=== PATIENT | male | born 1965 | race Hispanic/Latino ===

== ENCOUNTER 2024-03-02 08:19 | Emergency (ER) | payer SELFPAY ==
--- OUTSIDE RECORDS SUMMARY | 2024-03-02 08:22 | XMS REPORT | Continuity of Care Document ---
Author Name Unknown Address [address] [facility] [address] [place] [id number] [facility] thconnect Address [address] [facility] [address] [place] [address] Care Team Providers Care Caving Guide Name Role Phone DWIGHT TURNER Attending Clinician Unavailable DWIGHT TURNER Admitting Clinician Unavailable Payers Payer Name Policy Type Policy Number Effective Date Expirati on Date Source MEDICAID ALIEN PENDING PENDING 2019 00:00:00 2019 00:00:00 Allergies, Adverse Reactions, Alerts Allergy Name Allergy Type Status Severity Reaction(s) Onset Date Inactive Date Treating Clinician Comments Source NO KNOWN ALLERGIE S Drug Class Active [facility] Encounters Start Date/Time End Date/Time Encounter Type Admission Type Attending Clinicians Care Facility Care Department Encounter ID Source 2020-08-23 18:24:00 2020-08-23 18:24:00 Emergency X [facility] ERT [id number] [facility] 2019-11-08 23:25:24 2019-11-09 01:39:00 Emergency X DWIGHT TURNER [facility] ERT [id number] [facility] Results Test Description Test Time Test Comments Results Result Co mments Source COMPREHENSIVE METABOLIC [id number] 05:09:28* Test Item Value Reference Range Interpretation Comme nts GLUCOSE (test code = 2217) 102 MG/DL 70-99 H BUN (test code = 2208) 16 MG/DL 6-20 CREATININE (test code = 2214) 0.86 MG/DL 0.80-1.40 eGFR (2020 CKD-EPI) (test code = 43821) 101 ML/MIN/1.73 >60 CALC BUN/CREAT (test code = 2235) 19 RATIO 6-28 SODIUM (test code = 2231) 140 MEQ/L 133-146 POTASSIUM (test code = 2228) 4.4 MEQ/L 3.5-5.4 CHLORIDE (test code = 5) 102 MEQ/L 95-107 CARBON DIOXIDE (test code = 2205) 27 MEQ/L 19-31 CALCIUM (test code = 2208) 9.7 MG/DL 8.5-10.5 PROTEIN, TOTAL (test code = 2228) 8.1 G/DL 6.1-8.3 ALBUMIN (test code = 2200) 4.5 G/DL 3.5-5.2 CALC GLOBULIN (test code = 0) 3.6 G/DL 1.9-3.7 CALC A/G RATIO (test code = 223) 1.3 RATIO 1.0-2.6 BILIRUBIN, TOTAL (test code = 2206) 0.3 MG/DL See_Comment [Automated me ssage] The system which generated this result transmitted reference range: <=1.2. The reference range was not used to interpret this result as normal/abnormal. ALKALINE PHOSPHATASE (test code = 2203) 122 U/L 40-123 AST (test code = 2217) 29 U/L 9-50 ALT (test code = 221) 23 U/L 5-50 LIPID [id number] 05:09:28* Test Item Value Reference Range Interpretation Comme nts CHOLESTEROL (test code = 2210) 203 MG/DL <200 H TRIGLYCERIDES (test code = 2232) 211 MG/DL <150 H HDL CHOLESTEROL (test code = 0) 48 MG/DL >39 CALC LDL CHOL (test code = 2236) 122 MG/DL <100 H NOTE: CALCULATED LDL IS BASED ON COY-CRUZ METHOD WHICHINCLUDES ADJUSTABLE TRIGLYCERIDE:VLDL CHOLESTEROL RATIO.THIS FACTOR VARIES BY MEASURED TRIGLYCERIDE AND NON-HDLCHOLESTEROL CONCENTRATIONS WITH INCREASED CALCULATED LDL SEENIN HIGHER TRIGLYCERIDE OR LOWER NON-HDL SPECIMENS. FOR MOREINFORMATION, SEE CLIENT ANNOUNCEMENT AT [email or web address] Applications /CalcLDL-C RISK RATIO LDL/HDL (test code = 2238) 2.54 RATIO <3.55 CBC W/AUTO DIFF WITH [id number] 04:20:36* Test Item Value Reference Range Interpretation Comme nts WBC (test code = 1001) 5.9 K/UL 3.5-11.0 RBC (test code = 1002) 4.78 M/UL 4.50-6.10 HEMOGLOBIN (test code = 1003) 15.1 G/DL 13.5-17.0 HEMATOCRIT (test code = 1004) 43.7 % 40.0-51.0 MCV (test code = 1005) 91.4 fL 80.0-99.0 MCH (test code = 1006) 31.6 PG 25.0-33.0 MCHC (test code = 1007) 34.6 G/DL 31.0-36.0 RDW (test code = 1038) 13.4 % 11.5-15.0 NEUTROPHILS (test code = 1008) 46.8 % LYMPHOCYTES (test code = 1010) 39.2 % MONOCYTES (test code = 1011) 7.8 % EOSINOPHILS (test code = 1012) 5.1 % BASOPHILS (test code = 1013) 0.8 % IMMATURE GRANULOCYTES (test code = 1036) 0.3 % NUCLEATED RBCS (test code = 1065) 0.0 /100 WBC'S See_Comment [[employer]] The system which generated this result transmitted reference range: 0.0. The reference range was not used to interpret this result as normal/abnormal. PLATELET COUNT (test code = 1015) 275 K/UL 130-400 ABSOLUTE NEUTROPHILS (test code = 1066) 2.77 K/UL 1.50-7.50 ABSOLUTE LYMPHOCYTES (test code = 1067) 2.32 K/UL 1.00-4.00 ABSOLUTE MONOCYTES (test code = 1068) 0.46 K/UL 0.20-1.00 ABSOLUTE EOSINOPHILS (test code = 1040) 0.30 K/UL 0.00-0.50 ABSOLUTE BASOPHILS (test code = 1069) 0.05 K/UL 0.00-0.20 ABS IMMATURE GRANULOCYTES (test code = 1020) 0.02 K/UL 0.00-0.10 ABS NUCLEATED RBCS (test code = 31729) 0.00 K/UL 0.00-0.11 SARS-CoV-2 (COVID-19), RT-PCR/[id number] 11:23:26* Test Item Value Reference Range Interpretation Comments SARS-CoV-2 INTERPRETATION (test code = 52867) NEGATIVE SEE NOTE SARS-CoV-2 R NA NOT DETECTEDNegative results do not preclude SARS-CoV-2 infection and should notbe used as the sole basis for patient management decisions. Negativeresults must be combined with clinical observations, patient history,and epidemiological information. Optimum specimen types and timingfor peak viral levels during infections caused by SARS-CoV-2 have notbeen determined. Collection of multiple specimens or types ofspecimens may be necessary to detect virus. Improper specimencollection and handling, sequence variability under primers/probes,or organism present below the limit of detection may lead to falsenegative results. Positive and negative predictive values oftesting are highly dependent on prevalence. False negative testresults are more likely when prevalence is high. SOURCE (test code = 57472) NOT SPECIFIED Note: Methodolog y is Gerardo Ike Real-Time RT-PCR. The expected result or reference range is NEGATIVE (Not Detected). For more information regarding COVID-19 testing to include clinicalinformation, methodology detail, intended use, FDA authorization andrecommended fact sheets for patients or healthcare providers, see [employer] Announcement: SARS-CoV-2 (COVID-19) by NAAT at URL below (note,fact sheets are provided by method given in report:[email or web address] Alternatively, see downloadable PDF fact sheet at:[email or web address]-PCR UNLESS OTHERWISE INDICATED, ALL TESTING PERFORMED [facility] [address] [place] [address] [employer]TR[employer]ON[employer] HAND SOLDERER: LEWIS MENDIETA M.D. CLIA NUMBER [id number] [facility] [place] [place]. [id number]
[2024-03-02 08:57] LABS: Absolute Eosinophils 0.1 K/uL (0-0.5); Absolute Lymphocytes (CBC) 1.9 K/uL (0.7-4.9); Absolute Monocytes 0.6 K/uL (0.1-1.3); Basophils % 0.3 % (0-1.3); Eosinophils % 1.6 % (0-4.4); Hematocrit 45.5 % (39.6-49.0); Hemoglobin 15.3 g/dL (13.6-17.9); Lymphocytes % 22.4 % (15.3-44.8); MCH 31.7 pg (27.0-35.0); MCHC 33.6 g/dL (32.0-36.0); MCV 94.3 fL (80-100); MPV 7.7 fL (7.6-11.3); Monocytes % 6.6 % (3.3-12.3); Neutrophils % 69.1 % (41.7-73.7); Platelets 212 thou/uL (152-406); RBC Red Blood Cell Count 4.83 M/uL (4.33-5.43); Red Cell Distribution Width 14.5 % (12.1-15.2)
[2024-03-02 08:58] LABS: PT Prothrombin Time 12.5 SECONDS (9.5-12.5); Protime INR 1.14
[2024-03-02 09:11] LABS: Albumin 3.7 g/dL (3.4-5.0); Albumin/Globulin Ratio 0.9 (1.1-1.8); Anion Gap 6.6 mEq/L (5.0-15.0); Bilirubin Total 0.6 mg/dL (0.2-1.0); Globulin 4.3 g/dL (2.3-3.5); Potassium 3.6 mEq/L (3.5-5.1)
--- NOTE | 2024-03-02 10:01 | EDPHYS ---
Physician Documentation [facility] Name: Reece Martinez Age: 58 yrs Sex: Male : 1965 Arrival Date: 03/02/2024 Time: 08:19 Bed 20 Private MD: ED Physician Ciro Pearson HPI: 03/02 09:01 This 58 yrs old Male presents to ER via Ambulatory with complaints of Bloody ms3 Stools. 09:01 58-year-old male with no past medical history presents to the emergency department for ms3 bloody bowel movements. Patient states he was seen Tuesday in [place] for bloody bowel movement, stress and anxiety. Patient was given medication to help him sleep at that time. Patient states his symptoms have become worse and he is having 1 bloody bowel movement per day. Patient denies nausea, vomiting, diarrhea, abdominal pain, shortness of breath.. Historical: - Allergies: 08:36 No Known Allergies; kc6 - Home Meds: 08:36 trazodone 50 mg Oral tablet 1 tab every day at bedtime [Active]; kc6 - PMHx: 08:36 None; kc6 - PSHx: 08:36 None; kc6 - Immunization history:: Adult Immunizations up to date. - Infectious Disease History:: Denies. - Social history:: Smoking status: Patient denies any tobacco usage or history of. ROS: 09:01 Constitutional: Negative for fever, and chills. Neck: Negative for injury, pain, and ms3 swelling, Cardiovascular: Negative for chest pain, and palpitations. Respiratory: Negative for shortness of breath, cough, wheezing, and pleuritic chest pain, 09:01 Abdomen/GI: Positive for rectal bleeding, 09:01 All other systems are negative, Exam: 09:01 Constitutional: This is a well developed, well nourished patient who is awake, alert, ms3 and in no acute distress. Head/Face: Normocephalic, atraumatic. Chest/axilla: Normal chest wall appearance and motion. Nontender with no deformity. Cardiovascular: Regular rate and rhythm with a normal S1 and S2. No gallops, murmurs, or rubs. Normal PMI, no JVD. No pulse deficits. Respiratory: Lungs have equal breath sounds bilaterally, clear to auscultation and percussion. No rales, rhonchi or wheezes noted. No increased work of breathing, no retractions or nasal flaring. Abdomen/GI: Soft, non-tender, with normal bowel sounds. No distension or tympany. No guarding or rebound. No evidence of tenderness throughout. Skin: Warm, dry with normal turgor. Normal color with no rashes, no lesions, and no evidence of cellulitis. 09:01 : Rectal exam: Rectal tone: normal, Perineal sensation Normal Stool: brown, the nurse was present for the exam, Vital Signs: 08:36 BP 175 / 111; Pulse 91; Resp 18 S; Pulse Ox 100% on R/A; Weight 90.72 kg (R); Height 5 kc6 ft. 7 in. (R); Pain 0/10; 08:48 BP 175 / 103; kc6 09:06 BP 165 / 101; Pulse 79; Resp 18 S; Pulse Ox 96% on R/A; kc6 10:16 BP 158 / 89; Pulse 85; Resp 18 S; Pulse Ox 99% on R/A; kc6 08:36 Body Mass Index 31.32 (90.72 kg, 170.18 cm) kc6 08:36 Pain Scale: Adult kc6 MDM: 08:31 Patient medically screened. ms3 09:01 Differential diagnosis: Internal hemorrhoid versus anemia versus hypertension. ms3 14:47 Data reviewed: vital signs, nurses notes, lab test result(s), and as a result, I will ms3 discharge patient. Counseling: I had a detailed discussion with the patient and/or guardian regarding the historical points, exam findings, and any diagnostic results supporting the discharge/admit diagnosis, lab results, the need for outpatient follow up, to return to the emergency department if symptoms worsen or persist or if there are any questions or concerns that arise at home. Special discussion: I discussed with the patient/guardian in detail that at this point there is no indication for admission to the hospital. It is understood, however, that if the symptoms persist or worsen the patient needs to return immediately for re-evaluation. ED course: Discussed labs with patient. Patient to follow-up with primary care physician in 2 to 3 days. Patient understands and agrees with plan. All questions were answered. Return precautions discussed include worsening symptoms, or any other concerns. 05/31 08:33 Order name: CBC with Diff; Complete Time: 09:42 ms3 03/02 08:33 Order name: CMP; Complete Time: 09:42 ms3 03/02 08:33 Order name: PT-INR; Complete Time: 09:42 ms3 Administered Medications: No medications were administered Disposition Summary: 03/02/24 10:01 Discharge Ordered Notes: Location: Home ms3 Condition: Stable ms3 Diagnosis - Rectal bleeding ms3 Followup: ms3 - With: Elfego Muñoz MD - When: 2 - 3 days - Reason: Recheck today's complaints Discharge Instructions: - Discharge Summary Sheet ms3 - Rectal Bleeding, [id number] ms3 Forms: - Medication Reconciliation Form ms3 - Antibiotic Education ms3 - Prescription Opioid Use ms3 - Patient Portal Instructions ms3 - Leadership Thank You Letter ms3 Signatures: Dispatcher [employer] EDMS Ciro Pearson DO DO ms3 Celeste Richardson RN RN kc6 Corrections: (The following items were deleted from the chart) 08:33 08:33 CBC+H.LAB.BRZ ordered. EDMS EDMS 08:33 08:33 COMPREHENSIVE METABOLIC PANEL+C.LAB.BRZ ordered. EDMS EDMS 08:33 08:33 PROTIME (+INR)+COAG.LAB.BRZ ordered. EDMS EDMS
--- NOTE | 2024-03-02 10:01 | ER ---
Nurse's Notes [facility] Name: Reece Martinez Age: 58 yrs Sex: Male : 1965 Arrival Date: 03/02/2024 Time: 08:19 Bed 20 Private MD: Diagnosis: Rectal bleeding Presentation: 03/02 08:36 Chief complaint: Patient states: bloody stool since Tuesday. denies n/v/d or abd pain. [facility] Coronavirus screen: At this time, the client does not indicate any symptoms associated with coronavirus-19. Ebola Screen: No symptoms or risks identified at this time. Initial Sepsis Screen: Does the patient meet any 2 criteria? No. Patient's initial sepsis screen is negative. Does the patient have a suspected source of infection? No. Patient's initial sepsis screen is negative. Risk Assessment: Do you want to hurt yourself or someone else? Patient reports no desire to harm self or others. Onset of symptoms was March 02, 2024. 08:36 Method Of Arrival: Ambulatory [facility] 08:36 Acuity: ALVINO 3 [facility] Historical: - Allergies: 08:36 No Known Allergies; kc6 - Home Meds: 08:36 trazodone 50 mg Oral tablet 1 tab every day at bedtime [Active]; kc6 - PMHx: 08:36 None; kc6 - PSHx: 08:36 None; kc6 - Immunization history:: Adult Immunizations up to date. - Infectious Disease History:: Denies. - Social history:: Smoking status: Patient denies any tobacco usage or history of. Screenin:37 [facility] ED Fall Risk Assessment (Adult) History of falling in the last 3 months, kc6 including since admission No falls in past 3 months (0 pts) Confusion or Disorientation No (0 pts) Intoxicated or Sedated No (0 pts) Impaired Gait No (0 pts) Mobility Assist Device Used No (0 pt) Altered Elimination No (0 pt) Score/Fall Risk Level 0 - 2 = Low Risk. Abuse screen: Denies threats or abuse. Denies injuries from another. Nutritional screening: No deficits noted. Tuberculosis screening: No symptoms or risk factors identified. Assessment: 08:47 General: Appears in no apparent distress. comfortable, well groomed, well developed, [facility] Behavior is calm, cooperative, appropriate for age. Pain: Denies pain. Neuro: Level of Consciousness is awake, alert, obeys commands, Oriented to person, place, time, situation, Appropriate for age. Cardiovascular: Capillary refill < 3 seconds. Respiratory: Airway is patent Trachea midline Respiratory effort is even, unlabored, Respiratory pattern is regular, symmetrical. GI: Reports bloody stool, Patient currently denies abdominal pain, diarrhea, nausea, vomiting. : No signs and/or symptoms were reported regarding the genitourinary system. EENT: No signs and/or symptoms were reported regarding the EENT system. Derm: No signs and/or symptoms reported regarding the dermatologic system. Skin is intact, is healthy with good turgor, Skin is pink, warm \T\ dry. Musculoskeletal: No signs and/or symptoms reported regarding the musculoskeletal system. Circulation, motion, and sensation intact. Capillary refill < 3 seconds, Range of motion: intact in all extremities. 09:47 Reassessment: Patient appears in no apparent distress at this time. No changes from kc6 previously documented assessment. Patient and/or family updated on plan of care and expected duration. Pain level reassessed. Patient is alert, oriented x 3, equal unlabored respirations, skin warm/dry/pink. Vital Signs: 08:36 BP 175 / 111; Pulse 91; Resp 18 S; Pulse Ox 100% on R/A; Weight 90.72 kg (R); Height 5 kc6 ft. 7 in. (R); Pain 0/10; 08:48 BP 175 / 103; kc6 09:06 BP 165 / 101; Pulse 79; Resp 18 S; Pulse Ox 96% on R/A; kc6 10:16 BP 158 / 89; Pulse 85; Resp 18 S; Pulse Ox 99% on R/A; kc6 08:36 Body Mass Index 31.32 (90.72 kg, 170.18 cm) kc6 08:36 Pain Scale: Adult kc6 ED Course: 08:22 Patient arrived in ED. rg4 08:23 Celeste Richardson, EDGAR is Primary Nurse. kc6 08:26 Ciro Pearson DO is Attending Physician. db 08:36 Triage completed. kc6 08:36 Arm band placed on. kc6 08:37 Patient has correct armband on for positive identification. Placed in gown. Bed in low kc6 position. Call light in reach. Side rails up X 1. Client placed on continuous cardiac and pulse oximetry monitoring. NIBP monitoring applied. 08:47 Inserted saline lock: 20 gauge in right antecubital area, using aseptic technique. kc6 Blood collected. 09:05 Served as a lan engineer during rectal exam. kc6 10:00 Elfego Muñoz MD is Referral Physician. ms3 10:16 IV discontinued, intact, bleeding controlled, No redness/swelling at site. Pressure kc6 dressing applied. Administered Medications: No medications were administered Medication: 10:16 VIS not applicable for this client. kc6 Outcome: 10:01 Discharge ordered by . ms3 10:16 Discharged to home ambulatory, kc6 10:16 Condition: good 10:16 Discharge instructions given to patient, Instructed on discharge instructions, follow up and referral plans. Demonstrated understanding of instructions, follow-up care, 10:16 Patient left the ED. kc6 Signatures: Joan Hernandez rg4 Ciro Pearson DO DO ms3 Celeste Richardson, RN RN kc6 Kathleen James RN RN db
[2024-03-02 10:37] VITALS: BP 158/89; O2SAT 99
== END 2024-03-02 10:16 | disposition home or self-care (01) ==
LOC: ER 08:19
DX: K62.5 Hemorrhage of anus and rectum (principal)
CPT/HCPCS: 36415; 80053; 85025; 85610; 99284